=== PATIENT | male | born 1960 | race Caucasian/White ===

== ENCOUNTER 2022-04-04 08:01 | Outpatient (CLI) | payer BC ==
[2022-04-04 08:51] LABS: #Eosinphils 0.1 10x3/uL (0.0-0.5); #Monocytes 0.5 10x3/uL (0.0-1.1); #Neutrophils 3.6 10x3/uL (1.5-8.4); %Basophils 0.7 % (0.0-2.0); %Eosinophils 1.5 % (0.0-6.0); %Lymphocytes 29.1 % (18.0-47.0); %Monocytes 7.8 % (0.0-10.0); %Neutrophils 60.7 % (40.0-75.0); Hemoglobin 15.8 g/dL (13.5-17.5); Mean Corpuscular HGB CONC 34.3 g/dL (32.0-36.0); Mean Corpuscular Hemoglobin 30.9 pg (27.0-33.0); Mean Corpuscular Volume 90.2 fl (81.2-95.1); Mean Platelet Volume 8.7 fl (7.4-10.4); Platelet Count 322 10x3/uL (150-450); RBC Distribution Width 12.8 % (11.5-14.5); Red Blood Cell (RBC) Count 5.11 10x6/uL (4.32-5.72); White Blood Cell (WBC) Count 5.9 10x3/uL (3.5-10.5)
== END 2022-04-04 08:02 | disposition home or self-care (01) ==
LOC: LABBT 08:01
PROVIDERS: ATTEND Orthopaedic Surgery Hand Surgery
DX: Z01.818 Encounter for other preprocedural examination (principal); M72.0 Palmar fascial fibromatosis [Dupuytren]
CPT/HCPCS: 85025; 93005; 93010

== ENCOUNTER 2022-04-07 12:45 | Day surgery (SDC) | payer BC ==
[2022-04-03 14:36] VITALS: BMI 25.1
[2022-04-07] MEDS ORDERED: Lidocaine 1% MPF 2 ML VIAL ONE (13:15)
[2022-04-07] MEDS ORDERED: Sodium Chloride 0.9% 0 ML ONE (13:15)
[2022-04-07] MEDS ORDERED: CEFAZOLIN 2 GM VIAL ONE ×2 (13:15→14:50)
[2022-04-07] MEDS ORDERED: Collagenase Clostridium Hist. 0.9 MG VIAL IJ SCH (14:15)
[2022-04-07] MEDS ORDERED: Sodium Chloride 0.9% 100 ML ONE (14:50)
[2022-04-07] MEDS ORDERED: PROPOFOL 200 MG/20 ML VIAL ONE (15:06)
== END 2022-04-07 16:18 | disposition home or self-care (01) ==
LOC: SDC 12:45
PROVIDERS: ATTEND Orthopaedic Surgery Hand Surgery
PROC: 3E013TZ Introduction of Destructive Agent into Subcutaneous Tissue, Percutaneous Approach (ICD-10-PCS; principal; 2022-04-07)
DX: M72.0 Palmar fascial fibromatosis [Dupuytren] (principal); I10 Essential (primary) hypertension; E78.5 Hyperlipidemia, unspecified; Z79.899 Other long term (current) drug therapy; Z88.8 Allergy status to other drugs, medicaments and biological substances
CPT/HCPCS: J0690; J0775; J3490